=== PATIENT | male | born 2000 | race Caucasian/White ===

== ENCOUNTER 2020-08-29 09:58 | Outpatient (NON) | payer BC, SELFPAY ==
[2020-08-29 23:03] LABS: SARS-CoV-2 RNA PCR Negative
== END 2020-08-29 09:59 ==
PROVIDERS: PCP Internal Medicine; Visit Provider Nurse Practitioner
DX: Z20.828 Contact with and (suspected) exposure to other viral communicable diseases (principal); R51.9 Headache, unspecified; R11.2 Nausea with vomiting, unspecified; R53.83 Other fatigue
CPT/HCPCS: 87635; C9803; U0003